=== PATIENT | male | born 1955 | race Two or more races ===

== ENCOUNTER 2016-09-13 04:58 | Emergency (ER) | payer OTHER ==
[~2016-09-13] VITALS: Ht 165.1 cm; Wt 63.0 kg
[2016-09-13 05:05] VITALS: BP 150/85
[2016-09-13] MEDS ORDERED: DEXAMETHASONE 4 MG/ML, 1ML ONE (05:42)
[2016-09-13] MEDS ORDERED: DEXAMETHASONE 4 MG/ML, 1ML PO ONE (06:00)
== END 2016-09-13 05:54 | disposition home or self-care (01) ==
LOC: ED 05:48
DX: J02.0 Streptococcal pharyngitis (principal); K05.00 Acute gingivitis, plaque induced
CPT/HCPCS: 99283; J1100

== ENCOUNTER 2018-06-10 02:52 | Emergency (ER) | payer BC, OTHER ==
[~2018-06-10] VITALS: Ht 165.1 cm; Wt 65.0 kg
[2018-06-10 02:57] VITALS: BP 145/87
[2018-06-10] MEDS ORDERED: IBUPROFEN 600 MG TABLET PO ONE (03:30)
[2018-06-10] MEDS ORDERED: IBUPROFEN 600 MG TABLET ONE (03:42)
== END 2018-06-10 04:22 | disposition home or self-care (01) ==
LOC: ED 04:17
DX: J02.9 Acute pharyngitis, unspecified (principal); B97.89 Other viral agents as the cause of diseases classified elsewhere
CPT/HCPCS: 87081; 87880; 99283

== ENCOUNTER 2019-05-10 02:46 | Emergency (ER) | payer BC ==
[~2019-05-10] VITALS: Ht 165.1 cm; Wt 66.2 kg
[2019-05-10 02:48] VITALS: BP 124/76
[2019-05-10] MEDS ORDERED: DEXAMETHASONE 4 MG TABLET PO ONE (04:30)
[2019-05-10] MEDS ORDERED: DEXAMETHASONE 4 MG TABLET ONE (04:36)
--- NOTE | 2019-05-10 04:46 | NUR ---
Discharge instructions given. All questions and concerns addressed. Patient ambulatory with a steady gait. Belongings with patient.
== END 2019-05-10 04:47 | disposition home or self-care (01) ==
LOC: ED 03:09
DX: J02.8 Acute pharyngitis due to other specified organisms (principal); B97.89 Other viral agents as the cause of diseases classified elsewhere
CPT/HCPCS: 70360; 87081; 87880; 99284